=== PATIENT | male | born 1995 | race Caucasian/White ===

== ENCOUNTER 2016-04-08 10:49 | Emergency (ER) | payer BC ==
[~2016-04-08] VITALS: Ht 175.3 cm; Wt 90.9 kg
[~2016-04-08 10:49] MED LIST: ZITHROMAX 250M250 MG PO
[2016-04-08 11:10] VITALS: BP 147/88; PULSE 69; TEMP 98.3
== END 2016-04-08 12:46 | disposition home or self-care (01) ==
LOC: COL.ER 10:49
DX: L50.9 Urticaria, unspecified (principal); R20.2 Paresthesia of skin